=== PATIENT | female | born 1965 | race Caucasian/White ===

== ENCOUNTER 2024-06-10 16:32 | Inpatient (IN) | payer OTHER ==
[~2024-06-10] VITALS: Ht 162.6 cm; Wt 133.8 kg
[~2024-06-10 16:32] MED LIST: ADULT LOW DOSE81 MG PO; FUROSEMIDE40 MG PO; LISINOPRIL-HCT1 EAC1 PO; MEGA BIOTIN10000 MCG PO; METOPROLOL TAR100 MG PO; MULTI VITAMIN1 EACH PO; OMEGA 3 1,0001 EACH PO; OMEPRAZOLE20 MG PO; ONE DAILY FOR1 EACH PO; PREDNISONE20 MG PO; PROVENTIL HFA6.7 GM INH; RANITIDINE HCL150 MG PO; SIMVASTATIN20 MG PO; SUPER B COMPLE150 MG PO; VITAMIN D32000 UNI1 PO
[2024-06-10] MEDS ORDERED: HYDROXYZINE HCL25 MG PO (17:07)
[2024-06-10] MEDS ORDERED: TRIAMCINOLONE A15 G1 TOP (17:08)
[2024-06-10] MEDS ORDERED: GABAPENTIN100 MG PO (17:08)
[2024-06-10] MEDS ORDERED: TORSEMIDE20 MG PO (17:09)
[2024-06-10] MEDS ORDERED: SODIUM CHLORIDE 0.9% 1,000 ML IV ONE ×2 (17:30→19:45)
[2024-06-10 17:56] LABS: BASOPHILS 0.5 % (0-2); EOSINOPHILS 16.6 % (0-6); LYMPHOCYTES 16.5 % (24-44); MCH 32.5 (27-36); MCHC 35.8 g/dl (30-36); MCV 90.9 fl (81-99); NEUTROPHILS 60.4 % (39-80); PLATELET COUNT 380 K/uL (140-440); RBC 3.08 M/ul (4.3-5.7); RDW 13.8 (10.5-15.0)
[2024-06-10 18:13] LABS: ALBUMIN 4.3 g/dL (3.4-5.0); ALBUMIN/GLOBULIN RATIO 1.08 (1.1-2.4); ANION GAP 24.2 (7-21); BILIRUBIN, TOTAL 0.3 mg/dL (0.2-1.0); CALCIUM 9.7 mg/dL (8.5-10.1); CREATININE, SERUM 9.32 mg/dL (0.55-1.02); POTASSIUM 4.2 mmol/L (3.5-5.1); PROTEIN, TOTAL 8.3 g/dL (6.4-8.2)
[2024-06-10 18:17] LABS: BUN/CREATININE RATIO 26.5 (6.0-28.6)
[2024-06-10] MEDS ORDERED: DEXTROSE 50% 50 ML SYR IV PRN ×2 (19:00)
[2024-06-10] MEDS ORDERED: LACTATED RINGER'S 1,000 ML IV SCH (19:00)
[2024-06-10] MEDS ORDERED: GLUCAGON,HUMAN RECOMBINANT 1 MG/ML VIAL SUB-Q PRN (19:00)
[2024-06-10] MEDS ORDERED: IBLOOD GLUCOSE TEST STRIP 1 EA TEST XX PRN (19:00)
[2024-06-10] MEDS ORDERED: ACETAMINOPHEN 325 MG TAB PO PRN (19:00)
[2024-06-10] MEDS ORDERED: DEXTROSE 5% 1,000 ML IV PRN (19:00)
[2024-06-10] MEDS ORDERED: ondansetron HCL 4 MG/2 ML VIAL IV PRN (19:00)
[2024-06-10 20:24] LABS: BILIRUBIN, URINE NEGATIVE (negative); BLOOD/HGB, URINE TRACE-I (Negative); KETONE, URINE NEGATIVE (Negative); LEUK ESTERASE, URINE NEGATIVE (negative); NITRITE, URINE NEGATIVE (negative); PH, URINE 5.5 (5-7)
[2024-06-10 20:31] LABS: BACTERIA, URINE RARE /hpf (negative); CASTS, URINE NONE SEEN \\lpf; COLLECTION TYPE, URINE CLEAN CATCH; CRYSTALS, URINE NONE SEEN (0-1+); EPITHELIAL CELLS, URINE SQUAMOUS 2+ /lpf (0-1+); RED BLOOD CELLS, URINE 0-1 /hpf (0-5); REFLEX CULTURE, URINE No (No)
[2024-06-10 21:00] LABS: ANION GAP 24.9 (7-21); BUN/CREATININE RATIO 27.02 (6.0-28.6); CALCIUM 8.8 mg/dL (8.5-10.1); CREATININE, SERUM 8.4 mg/dL (0.55-1.02); POTASSIUM 3.9 mmol/L (3.5-5.1)
[2024-06-10] MEDS ORDERED: HEParin SOD (PORCINE) 5,000 UNIT/ML SDV SUB-Q SCH (21:00)
[2024-06-10] MEDS ORDERED: MELATONIN 3 MG TAB PO PRN (21:00)
[2024-06-10] MEDS ORDERED: IBLOOD GLUCOSE TEST STRIP 1 EA TEST VI SCH (21:00)
[2024-06-10] MEDS ORDERED: INSULIN LISPRO 100 UNIT/ML ML SUB-Q SCH (21:00)
--- NOTE | 2024-06-10 21:04 | NUR ---
REPORT RECEIVED FROM ER NURSE, WALKER. PATIENT TRANSFERRED TO MS BED IN ROOM 112. DAUGHTER, ABRAHAM, PRESENT. ORIENTED TO ROOM. ASSESSMENT COMPLETE. DENIES FURTHER NEEDS. CALL LIGHT IN REACH.
[2024-06-10 21:05] VITALS: BP 126/61
--- NOTE | 2024-06-10 21:13 | NUR ---
dr larios called rn station and asked if pt arrived to floor. per dr larios, md plans to see pt in the morning. md updated on most recent creatinine result compared to previous. per , orders for iv fluids and am labs in place. no new orders received at this time-primary rns made aware.
[2024-06-10 22:09] VITALS: BP 108/57
--- NOTE | 2024-06-10 22:23 | NUR ---
IN ROOM TO ANSWER CALL LIGHT, PATIENT AMBULATORY WITH MINIMAL SBA TO RESTROOM, RETURNED TO BED WITHOUT DIFFICULTY. IV FLUIDS INFUSING PER ORDER. PATIENT PROVIDED SNACK PER REQUEST. DENIES FURTHER NEEDS. CALL LIGHT IN REACH.
--- NOTE | 2024-06-10 23:33 | NUR ---
PATIENT RESTING COMFORTABLY ON LEFT SIDE WITH EYES CLOSED, RESPIRATIONS EVEN AND UNLABORED. NO NEEDS IDENTIFIED. CALL LIGHT IN REACH.
--- NOTE | 2024-06-10 23:54 | NUR ---
PT AWAKE, IV BEEPING. IV PUMP RESTARTED. IV SITE RH WNL. NO FURTHER NEEDS. CALL LIGHT WITHIN REACH.
[2024-06-11] VITALS (11 sets, daily range): BP systolic 98–150; BP diastolic 56–80
--- NOTE | 2024-06-11 00:16 | NUR ---
IN ROOM TO ANSWER CALL LIGHT. PATIENT AMBULATED TO RESTROOM WITH MINIMAL SBA. BACK TO BED WITHOUT DIFFICULTY. IV FLUIDS CONTINUING TO INFUSE PER MAR. FRESH WATER PROVIDED PER REQUEST. PATIENT DENIES FURTHER NEEDS. CALL LIGHT IN REACH.
--- NOTE | 2024-06-11 02:09 | NUR ---
ASSISTED PT TO BR, SBA. PT USES IV POLE FOR STABILITY. VOIDS WNL. VS OBTAINED. FRESH ICE WATER PROVIDED. TEMP DECREASED IN ROOM AND SOCKS REMOVED PER PT REQUEST, REPORTS NOT SLEEPING WELL.
--- NOTE | 2024-06-11 03:45 | NUR ---
IN ROOM TO ANSWER CALL LIGHT, PATIENT AMBULATORY TO RESTROOM USING IV POLE FOR STABILIZATION. AMBULATORY BACK TO BED WITHOUT DIFFICULTY. IV FLUIDS CONTINUING TO INFUSE PER ORDER. PATIENT DENIES FURTHER NEEDS, CALL LIGHT IN REACH.
[2024-06-11 05:31] LABS: BASOPHILS 0.6 % (0-2); EOSINOPHILS 16.5 % (0-6); HEMATOCRIT 27.4 % (35.0-50.0); HEMOGLOBIN 9.5 g/dL (12.0-18.0); LYMPHOCYTES 18.7 % (24-44); MCHC 34.8 g/dl (30-36); MONOCYTES 7.2 % (0-12); PLATELET COUNT 354 K/uL (140-440); RBC 2.98 M/ul (4.3-5.7)
--- NOTE | 2024-06-11 05:36 | NUR ---
PATIENT UP TO RESTROOM TO VOID, AMBULATORY WITH USE OF IV POLE FOR STABILIZATION. BACK TO BED WITHOUT DIFFICULTY. VS OBTAINED AND RECORDED. PATIENT DENIES FURTHER NEEDS. CALL LIGHT IN REACH.
[2024-06-11 05:48] LABS: ANION GAP 19.7 (7-21); BUN/CREATININE RATIO 30.6 (6.0-28.6); CALCIUM 9.2 mg/dL (8.5-10.1); CREATININE, SERUM 7.32 mg/dL (0.55-1.02); MAGNESIUM 2.9 mg/dL (1.8-2.4); PHOSPHORUS, INORGANIC 8.4 mg/dL (2.5-4.9); POTASSIUM 3.7 mmol/L (3.5-5.1)
--- NOTE | 2024-06-11 06:23 | NUR ---
PATIENT AWAKE AND ALERT, WATCHING TV. FAMILY MEMBER PRESENT IN ROOM WITH PATIENT. DENIES ANY NEEDS, CALL LIGHT IN REACH.
--- NOTE | 2024-06-11 07:20 | NUR ---
REPORT RECEIVED FROM PROCESS OPERATOR RN. PATIENT ASSISTED TO BATHROOM WITH 1 PA STAND BY. VOID QUANITY SUFFICIENT. PATIENT BACK IN BED. REQUESTING FRESH ICE WATER. ICE WATER GIVEN. DENIES ANY NEEDS AT THIS TIME. CALL LIGHT WITHIN REACH.
--- NOTE | 2024-06-11 08:25 | NUR ---
PATIENT RESTING IN BED. EATING BREAKFATS. NEW BAG OF IVF HUNG, IV SITE PATENT. NO FURTHER NEEDS. CALL LIGHT WITHIN REACH.
--- NOTE | 2024-06-11 09:41 | NUR ---
PATIENT ASSISTED TO BATHROOM. VOID FOR QUANITY SUFFICIENT. PATIENT ASSISTED TO RECLINER WITH 1 PA ASSIST. LUNGS CTA, BOWEL TONES ACTIVE X4. HEART SOUNDS REGULAR. PATIENT DENIES ANY PAIN OR DISCOMFORT AT THIS TIME. IV SITE PATENT WITH IVD INFUSING WNL. REQUESTED APPLE JUICE, APPLE JUICE GIVEN. DENIES ANY FURTHER NEEDS CALL LIGHT WITHIN REACH.
[2024-06-11] MEDS ORDERED: TRIMETHOPRIM/SULFAMETHOXAZOLE 1 EA TAB PO SCH (10:16)
[2024-06-11] MEDS ORDERED: CEFTRIAXONE SODIUM 2 GM in SODIUM CHLORIDE 0.9% 100 ML IV SCH (10:20)
[2024-06-11] MEDS ORDERED: METOPROLOL TARTRATE 50 MG TAB PO SCH (10:22)
[2024-06-11] MEDS ORDERED: PANTOPRAZOLE SODIUM 40 MG TABEC PO SCH (10:23)
--- NOTE | 2024-06-11 10:37 | NUR ---
VISITED DURING SPIRITUAL CARE ROUNDS. PT UP IN CHAIR, DEMONSTRATED OVERALL GOOD SPIRITS, DENIED IMMEDIATE NEEDS. VENEER SHEET REPAIRER PROVIDED SUPPORTIVE PRESENCE, HOSPITALITY, PRAYER, FACILITATED INTERACTION WITH THERAPY ANIMAL. PT EXPRESSED GRATITUDE.
[2024-06-11] MEDS ORDERED: CEFTRIAXONE SODIUM 2 GM VIAL ONE (10:39)
--- NOTE | 2024-06-11 10:40 | NUR ---
UR CLINICAL REVIEW: [facility] [place], MEETS INPT FOR ACUTE RENAL FAILURE CREATININE 8.40 AFTER OBSERVATION PERIOD, GFR 5, BUN 227, NEED FOR GENTAL IV HYDRATION DUE TO HISTORY OF CHF, CONTINUED MONITORING OF LABS [facility] INPT 06/10/24 @ 1859 ORDER MATCHES REG AUTH PENDING, CLINICALS SENT FOR REVIEW, VIA RIGHTFAX. PLAN TO DC TO HOME WHEN MEDICALLY STABLE. 06/13/2024
--- NOTE | 2024-06-11 10:45 | NUR ---
Spoke with Katarzyna, she states she lives in a 1 story home with 1 step. She lives with her 2 adult kelly, and sons girlfriend. They share costs and household tasks. Pt drives. She is not currently working, but is looking for a job. She uses a cane for long distance. Pt denies needs to go home. She denies finacial or safety concerns. Home when cleared medically.
--- NOTE | 2024-06-11 10:50 | NUR ---
NOTED BOWEL MOVEMENT OF DIARRHEA. SCHEDULED MEDICATIONS ADMINSTERED. FRESH ICE WATER GIVEN. DENIES ANY FURTHER NEEDS CALL LIGHT WITHIN REACH.
[2024-06-11] MEDS ORDERED: FENOFIBRATE134 MG PO (11:26)
[2024-06-11] MEDS ORDERED: METFORMIN HCL500 M1 PO (11:27)
[2024-06-11] MEDS ORDERED: PHARMACY RENAL DOSE ADJUSTMENT 1 DOSE MISC PO SCH (12:00)
--- NOTE | 2024-06-11 12:18 | NUR ---
CALL LIGHT ANSWERED. PATIENT ASSISTED TO BATHROOM WITH 1 PA ASSIST. BM NOTED SEMI SOLID. PATIENT SE TUP WITH LUNCH. SS INSULIN ADMINSTERED. DENIES ANY FURTHER NEEDS CALL LIGHT WITHIN REACH.
[2024-06-11] MEDS ORDERED: BUPROPION XL150 MG PO (13:06)
--- NOTE | 2024-06-11 13:07 | NUR ---
MED REC COMPLETE
--- NOTE | 2024-06-11 13:36 | NUR ---
PATIENT RESTING IN RECLINER. DENIES ANY NEEDS AT THIS TIME. IV SITE PATENT, IVF INFUSING WITH NO ISSUES OR CONCERNS. CALL LIGHT WITHIN REACH.
--- NOTE | 2024-06-11 14:30 | NUR ---
STOOL SAMPLE OBTAINED BY UTILITY BILL COMPLAINTS INVESTIGATOR STAFF.
--- NOTE | 2024-06-11 15:22 | NUR ---
PATIENT UP TO BATHROOM TO HAVE BM. BACK TO RECLINER. IV SITE REMAINS PATENT. PATIENT DENIES ANY PAIN. DENIES ANY NAUSEA. CALL LIGHT WITHIN REACH.
--- NOTE | 2024-06-11 17:13 | NUR ---
PATIENT RESTING IN RECLINER. EATING DINNER. DENIES ANY NEEDS AT THIS TIME. SS INSULIN ADMINSTERED. CALL LIGHT WITHIN REACH.
[2024-06-11] MEDS ORDERED: LACTATED RINGER'S 1,000 ML IV SCH (17:15)
--- NOTE | 2024-06-11 18:24 | NUR ---
PATIENT RESTING IN RECLINER. DENIES ANY NEEDS AT THIS TIME. CALL LIGHT WITHIN REACH.
--- NOTE | 2024-06-11 19:36 | NUR ---
RECEIVED REPORT FROM ISRAEL TRUJILLO. PT RESTING IN BED. NO NEEDS OR COMPLAINTS AT THIS TIME.
--- NOTE | 2024-06-11 19:43 | NUR ---
AGRICULTURE ENGINEER GAVE PT A YOGURT (13G CARBS)
--- NOTE | 2024-06-11 20:21 | NUR ---
CREDIT ADMINISTRATOR OBTAINED VITALS. PT SBA TO BATHROOM. I&O DOCUMENTED. PT STATES NO FURTHER NEEDS AT THIS TIME. CALL LIGHT WITHIN REACH.
[2024-06-11] MEDS ORDERED: diphenhydrAMINE HCL 25 MG CAP PO PRN (20:45)
--- NOTE | 2024-06-11 20:45 | NUR ---
PATIENT REPORTS ITCHING. RED AREA NOTED ON LEFT LOWER ROSEN AREA FROM PATIENT SCRATCHING. LOTION APPLIED. PATIENT REPORTS ITCHING ACROSS THE MAJORITY OF HER BODY. NO RASIED RASH NOTED. PATIENT REPORTS THIS IS A CHONIC ISSUE FOR HER. REQUEST PO BENADRYL. DISCUSSED WITH ; PRN MEDS ORDERED. SEE EMAR. PRIMARY RN UPDATED.
[2024-06-11] MEDS ORDERED: ATORVASTATIN 10 MG TAB PO SCH (21:00)
--- NOTE | 2024-06-11 22:00 | NUR ---
PT APPEARS TO BE SLEEPING ON LEFT SIDE, APPEARS COMFORTABLE.
--- NOTE | 2024-06-11 23:34 | NUR ---
patient assisted back to bed from bathroom. patient reports difficulty sleeping and some discomfort in her back. primary rn notified.
--- NOTE | 2024-06-11 23:37 | NUR ---
PT REPORTS DIFFICULTY SLEEPING. DECLINES OFFER OF PRN MELATONIN. WARM BLANKET OFFER ACCEPTED. FRESH ICE WATER GIVEN. CALL LIGHT WITHIN REACH.
[2024-06-12] VITALS (8 sets, daily range): BP systolic 117–136; BP diastolic 45–62
--- NOTE | 2024-06-12 00:57 | NUR ---
PT STILL AWAKE, SITTING EOB. REPORTS STILL NOT BEING ABLE TO SLEEP. DECLINES WALK IN HALLS AT THIS TIME. IVF INFUSING. CALL LIGHT WITHIN REACH.
--- NOTE | 2024-06-12 03:35 | NUR ---
CALL LIGHT ANSWERED. PT NEEDED TO USE BATHROOM. OVERHEAD CLEANER MAINTAINER SBA TO BATHROOM. PT VOIDED AND STATED THAT SHE WANTED TO SIT IN CHAIR. PT ASSISTED TO CHAIR AND STATES NO FURTHER NEEDS AT THIS TIME. CALL LIGHT WITHIN REACH.
--- NOTE | 2024-06-12 04:29 | NUR ---
CALL LIGHT ANSWERED. PT NEEDED TO USE BATHROOM. SECURITIES TRADER SBA TO BATHROOM. PT INSTRUCTED TO USE BATHROOM CALL LIGHT WHEN DONE. BATHROOM CALL LIGHT ANSWERED. PT ASSISTED BACK TO CHAIR. OUTPUT MEASURED AND PT STATES NO FURTHER NEEDS AT THIS TIME. CALL LIGHT WITHIN REACH.
--- NOTE | 2024-06-12 04:57 | NUR ---
PT SLEEPING, APPEARS COMFORTABLE.
--- NOTE | 2024-06-12 05:10 | NUR ---
PT REPORTS NAUSEA. PRN ZOFRAN ADMINISTERED AND DIET 7-UP PROVIDED. BT HYPO X 4. ABD OBESE, PT REPORTS FEELING BLOATED. UP IN RECLINER. ENCOURAGED AMBULATION IN HALLS WHEN NAUSEA PASSES.
--- NOTE | 2024-06-12 05:24 | NUR ---
BASKET PERSON OBTAINED VITALS AND I&O. PT STATES NO NEEDS AT THIS TIME. CALL LIGHT WITHIN REACH.
--- NOTE | 2024-06-12 05:39 | NUR ---
CALL LIGHT ANSWERED. PT NEEDED TO USE BATHROOM. POUNCER SBA TO BATHROOM. PT VOIDED AND ASSISTED BACK TO CHAIR. PT STATES NO FURTHER NEEDS AT THIS TIME. CALL LIGHT WITHIN REACH.
--- NOTE | 2024-06-12 06:07 | NUR ---
PT WANTED TO GO FOR A WALK. PT WALKED 1 LAP AROUND UNIT WITH THIS COLLEGE SPORTS ASSISTANT SBA. PT NOW BACK IN ROOM IN CHAIR. PT STATES NO FURTHER NEEDS AT THIS TIME. CALL LIGHT WITHIN REACH.
--- NOTE | 2024-06-12 07:15 | NUR ---
REPORT REC'D FROM GINA WOOD. PT UP TO BRP AT THIS TIME.
[2024-06-12 08:08] LABS: BASOPHILS 0.8 % (0-2); EOSINOPHILS 10.2 % (0-6); HEMATOCRIT 28.5 % (35.0-50.0); LYMPHOCYTES 18.3 % (24-44); MCH 32.1 (27-36); MCV 91.5 fl (81-99); MONOCYTES 6.8 % (0-12); NEUTROPHILS 63.9 % (39-80); PLATELET COUNT 393 K/uL (140-440); RBC 3.11 M/ul (4.3-5.7); RDW 14.1 (10.5-15.0)
[2024-06-12 08:22] LABS: ALBUMIN 4.2 g/dL (3.4-5.0); ALBUMIN/GLOBULIN RATIO 1.02 (1.1-2.4); ANION GAP 17.7 (7-21); BILIRUBIN, TOTAL 0.3 mg/dL (0.2-1.0); BUN/CREATININE RATIO 44.91 (6.0-28.6); CALCIUM 9.7 mg/dL (8.5-10.1); CREATININE, SERUM 4.23 mg/dL (0.55-1.02); MAGNESIUM 2.4 mg/dL (1.8-2.4); POTASSIUM 3.7 mmol/L (3.5-5.1); PROTEIN, TOTAL 8.3 g/dL (6.4-8.2)
[2024-06-12] MEDS ORDERED: CEFTRIAXONE SODIUM 2 GM VIAL ONE (08:31)
[2024-06-12] MEDS ORDERED: cefuroxime axetiL 500 MG TAB PO SCH (10:34)
--- NOTE | 2024-06-12 12:15 | NUR ---
PT C/O NAUSEA/VOMITING APPROXIMATELY 200ML EMESIS. MEDICATED WITH 4MG ZOFRAN PO.
[2024-06-12] MEDS ORDERED: ondansetron HCL 4 MG TAB PO PRN (12:30)
--- NOTE | 2024-06-12 13:13 | NUR ---
PT REMAINS UP IN CHAIR, FEELS SLIGHTLY BETTER, BUT DID NOT WANT TO EAT LUNCH TRAY. PT CONTINUES TO HOPE SHE WILL BE DISCHARGED HOME LATER TODAY. PT HAS HAD BMX1 THIS SHIFT. IV INFILTRATION SITE DECREASED IN SWELLING, NO PAIN AT SITE CMS REMAINS INTACT. RECLINER LOCKED, CALL WATTS IN REACH.
--- NOTE | 2024-06-12 13:54 | NUR ---
PATIENT IS IN HER CHAIR AT THIS TIME, SHE WAS IN THE RESTROOM WHEN I CAME IN. STATED SHE WAS FEELING NAUSIOUS. ANTHROPOLOGIST CHARTED VITALS AND I&O'S, AND NOTIFIED RN THAT HER BP WAS A LITTLE LOW. CALL LIGHT WITH IN REACH NOTHING ELSE NEEDED AT THIS TIME.
[2024-06-12] MEDS ORDERED: PROCHLORPERAZINE MALEATE 5 MG TAB PO PRN (15:00)
[2024-06-12 16:23] LABS: ANION GAP 15.6 (7-21); BUN/CREATININE RATIO 42.55 (6.0-28.6); CALCIUM 9.9 mg/dL (8.5-10.1); CREATININE, SERUM 3.76 mg/dL (0.55-1.02); POTASSIUM 3.6 mmol/L (3.5-5.1)
[2024-06-12] MEDS ORDERED: NITROFURANTOIN MONOHYD MACROCR 100 MG CAP PO SCH (17:00)
[2024-06-12] MEDS ORDERED: METOCLOPRAMIDE HCL 10 MG TAB PO PRN (18:00)
--- NOTE | 2024-06-12 18:19 | NUR ---
PATIENT IS IN HER CHAIR AT THIS TIME, INSTRUCTOR HAIRSPRING CHARTED VITALS AND I&O'S. CALL LIGHT WITHIN REACH, NOTHING ELSE NEEDED AT THIS TIME.
[2024-06-12] MEDS ORDERED: NITROFURANTOIN100 M1 PO (18:43)
[2024-06-12] MEDS ORDERED: ONDANSETRON HCL4 MG PO (18:44)
--- NOTE | 2024-06-12 19:39 | NUR ---
PT D/C INFORMATION AND EDUCATION DONE. PT DC'D VIA W/C W/ FAMILY AND ALL BELONGINGS.
== END 2024-06-12 19:35 | disposition home or self-care (01) | DRG 683 ==
LOC: ED 16:32 → MS 20:42
PROVIDERS: Emergency Medicine; Family Medicine; ADMIT Student in an Organized Health Care Education/Training Program; ATTEND Student in an Organized Health Care Education/Training Program
DX: N17.9 Acute kidney failure, unspecified (principal); I50.22 Chronic systolic (congestive) heart failure; N39.0 Urinary tract infection, site not specified; K21.9 Gastro-esophageal reflux disease without esophagitis; E78.00 Pure hypercholesterolemia, unspecified; Z66 Do not resuscitate; F17.210 Nicotine dependence, cigarettes, uncomplicated; E86.0 Dehydration; F41.1 Generalized anxiety disorder; E78.5 Hyperlipidemia, unspecified; E11.40 Type 2 diabetes mellitus with diabetic neuropathy, unspecified; F32.9 Major depressive disorder, single episode, unspecified; I11.0 Hypertensive heart disease with heart failure; E83.41 Hypermagnesemia; E83.39 Other disorders of phosphorus metabolism; N18.9 Chronic kidney disease, unspecified; E11.22 Type 2 diabetes mellitus with diabetic chronic kidney disease; A08.4 Viral intestinal infection, unspecified; Z87.59 Personal history of other complications of pregnancy, childbirth and the puerperium; Z90.49 Acquired absence of other specified parts of digestive tract; Z86.79 Personal history of other diseases of the circulatory system; Z88.5 Allergy status to narcotic agent; Z79.899 Other long term (current) drug therapy; Z79.811 Long term (current) use of aromatase inhibitors
CPT/HCPCS: 36415; 74176; 80048; 80053; 81001; 83735; 84100; 85025; A9270; J1644; J1815; J2405; J7030; J7121

== ENCOUNTER 2024-06-14 06:00 | Emergency (ER) | payer OTHER ==
[~2024-06-14] VITALS: Ht 162.6 cm; Wt 129.7 kg
[~2024-06-14 06:00] MED LIST changes: +BUPROPION XL150 MG PO; +FENOFIBRATE134 MG PO; +GABAPENTIN100 MG PO; +HYDROXYZINE HCL25 MG PO; +METFORMIN HCL500 M1 PO; +NITROFURANTOIN100 M1 PO; +ONDANSETRON HCL4 MG PO; +TORSEMIDE20 MG PO; +TRIAMCINOLONE A15 G1 TOP
--- OUTSIDE RECORDS SUMMARY | 2024-06-14 06:04 | XMS ---
PreManage Notification: RASHAWN LORD Security Manufacturing Cost Estimator Events No recent Security Events currently on file CRITERIA MET - [facility] - 2 Visits in 30 Days CARE PROVIDERS -, [facility] Dentist: Seasonal Driver Current [place] PHONE: [phone] NICK KHAN [facility] Current PHONE: Unknown Brandy has no Care Guidelines for this patient. Lanette VISIT COUNT (12 MO.) [address] [place] [address] TOTAL 2 NOTE: Visits indicate total known visits. ED/UCC VISIT TRACKING (12 MO.) 06/14/2024 06:00 [facility] TYPE: Emergency COMPLAINT: - VOMITING 06/10/2024 16:32 [facility] TYPE: Emergency COMPLAINT: - ABDNORMAL LAB RESULTS INPATIENT VISIT TRACKING (12 MO.) 06/10/2024 20:[address] [facility] TYPE: Medical Surgical COMPLAINT: - GASTROENTERITIS/ACUTE RENAL FAILURE DIAGNOSES: - Acquired absence of other specified parts of digestive tract - Acquired absence of other specified parts of digestive tract - Acute kidney failure, unspecified - Acute kidney failure, unspecified - Allergy status to narcotic agent - Allergy status to narcotic agent - Chronic kidney disease, unspecified - Chronic kidney disease, unspecified - Chronic systolic (congestive) heart failure - Chronic systolic (congestive) heart failure - Dehydration - Dehydration - Diarrhea, unspecified - Do not resuscitate - Do not resuscitate - Gastro-esophageal reflux disease without esophagitis - Gastro-esophageal reflux disease without esophagitis - Generalized anxiety disorder - Generalized anxiety disorder - Hyperlipidemia, unspecified - Hyperlipidemia, unspecified - Hypermagnesemia - Hypermagnesemia - Hypertensive heart disease with heart failure - Hypertensive heart disease with heart failure - extermination supervisor (current) use of aromatase inhibitors - custodial (current) use of aromatase inhibitors - Major depressive disorder, single episode, unspecified - Major depressive disorder, single episode, unspecified - Nicotine dependence, cigarettes, uncomplicated - Nicotine dependence, cigarettes, uncomplicated - Other disorders of phosphorus metabolism - Other disorders of phosphorus metabolism - Other ocean transportation intermediary (current) drug therapy - Other ocean transportation intermediary (current) drug therapy - Personal history of other complications of , childbirth and the puerperium - Personal history of other complications of , childbirth and the puerperium - Personal history of other diseases of the circulatory system - Personal history of other diseases of the circulatory system - Pure hypercholesterolemia, unspecified - Pure hypercholesterolemia, unspecified - Type 2 diabetes mellitus with diabetic chronic kidney disease - Type 2 diabetes mellitus with diabetic chronic kidney disease - Type 2 diabetes mellitus with diabetic neuropathy, unspecified - Type 2 diabetes mellitus with diabetic neuropathy, unspecified - Urinary tract infection, site not specified - Urinary tract infection, site not specified - Viral intestinal infection, unspecified - Viral intestinal infection, unspecified [email or web address]
[2024-06-14] MEDS ORDERED: ondansetron HCL 4 MG/2 ML VIAL IV ONE (06:30)
[2024-06-14] MEDS ORDERED: LACTATED RINGER'S 1,000 ML IV ONE (06:30)
[2024-06-14 06:31] LABS: BASOPHILS 0.7 % (0-2); EOSINOPHILS 1.7 % (0-6); HEMATOCRIT 30.1 % (35.0-50.0); HEMOGLOBIN 10.3 g/dL (12.0-18.0); LYMPHOCYTES 13.6 % (24-44); MCH 31.5 (27-36); MCHC 34.2 g/dl (30-36); MCV 92.1 fl (81-99); MONOCYTES 6.4 % (0-12); NEUTROPHILS 77.6 % (39-80); PLATELET COUNT 439 K/uL (140-440); RBC 3.26 M/ul (4.3-5.7); RDW 14.1 (10.5-15.0)
[2024-06-14 06:46] LABS: ALBUMIN 4.4 g/dL (3.4-5.0); ALBUMIN/GLOBULIN RATIO 0.92 (1.1-2.4); ANION GAP 16.4 (7-21); BILIRUBIN, TOTAL 0.4 mg/dL (0.2-1.0); BUN/CREATININE RATIO 38.95 (6.0-28.6); CALCIUM 10.3 mg/dL (8.5-10.1); CREATININE, SERUM 2.49 mg/dL (0.55-1.02); POTASSIUM 3.4 mmol/L (3.5-5.1); PROTEIN, TOTAL 9.2 g/dL (6.4-8.2)
[2024-06-14] MEDS ORDERED: HYDROCODON-ACE1 EA10 PO (06:59)
[2024-06-14] MEDS ORDERED: fentaNYL citrate 100 MCG/2 ML VIAL IV ONE (07:00)
[2024-06-14] MEDS ORDERED: PROMETHEGAN25 MG PR (07:00)
[2024-06-14] MEDS ORDERED: diphenhydrAMINE HCL 50 MG/ML VIAL IV ONE (07:00)
[2024-06-14] MEDS ORDERED: DIPHENOXYLATE/ATROPINE 1 EA TAB PO ONE (07:00)
[2024-06-14] MEDS ORDERED: ONDANSETRON ODT8 MG PO (07:00)
[2024-06-14] MEDS ORDERED: LOMOTIL TABLET1 EACH PO (07:04)
[2024-06-14] MEDS ORDERED: CHOLESTYRAMINE P4 GM PO (07:04)
[2024-06-14] MEDS ORDERED: droPERidol 5 MG/2 ML VIAL IV ONE (08:30)
[2024-06-14] MEDS ORDERED: HYDROCODONE/ACETA 7.5/325 TAB PO ONE (09:30)
[2024-06-14] MEDS ORDERED: HYDROCODON-ACE1 EA11 PO (09:33)
[2024-06-14 09:52] VITALS: BP 156/85
[2024-06-14 09:57] LABS: BILIRUBIN, URINE NEGATIVE (negative); BLOOD/HGB, URINE TRACE-I (Negative); KETONE, URINE NEGATIVE (Negative); LEUK ESTERASE, URINE NEGATIVE (negative); NITRITE, URINE NEGATIVE (negative)
[2024-06-14 10:05] LABS: EPITHELIAL CELLS, URINE SQUAMOUS 1+ /lpf (0-1+)
[2024-06-14 10:06] LABS: BACTERIA, URINE NONE SEEN /hpf (negative); CASTS, URINE NONE SEEN \\lpf; COLLECTION TYPE, URINE CLEAN CATCH; CRYSTALS, URINE NONE SEEN (0-1+); RED BLOOD CELLS, URINE 0-1 /hpf (0-5); REFLEX CULTURE, URINE No (No); WHITE BLOOD CELLS, URINE 0-1 /HPF (0-5)
== END 2024-06-14 09:52 | disposition home or self-care (01) ==
LOC: ED 06:00
PROVIDERS: Family Medicine
DX: K52.9 Noninfective gastroenteritis and colitis, unspecified (principal); N28.9 Disorder of kidney and ureter, unspecified; I10 Essential (primary) hypertension; E78.00 Pure hypercholesterolemia, unspecified; K21.9 Gastro-esophageal reflux disease without esophagitis; F17.200 Nicotine dependence, unspecified, uncomplicated; Z88.5 Allergy status to narcotic agent; Z79.899 Other long term (current) drug therapy
CPT/HCPCS: 36415; 80053; 81001; 83735; 85025; 96374; 96375; 99284-25; A9270; J1200; J1790; J2405; J3010; J7121

== ENCOUNTER 2025-01-01 11:45 | Emergency (ER) | payer BC, OTHER ==
[~2025-01-01] VITALS: Ht 162.6 cm; Wt 125.6 kg
[~2025-01-01 11:45] MED LIST changes: +CHOLESTYRAMINE P4 GM PO; +HYDROCODON-ACE1 EA10 PO; +HYDROCODON-ACE1 EA11 PO; +LOMOTIL TABLET1 EACH PO; +ONDANSETRON ODT8 MG PO; +PROMETHEGAN25 MG PR
[2025-01-01] MEDS ORDERED: TRAMADOL HCL50 MG PO (13:41)
[2025-01-01] MEDS ORDERED: OXYCODONE HCL 5 MG TAB PO ONE (14:30)
[2025-01-01] MEDS ORDERED: CEPHALEXIN500 M1 PO (16:05)
[2025-01-01] MEDS ORDERED: HYDROCODON-ACE1 EAC8 PO (16:05)
[2025-01-01] MEDS ORDERED: CEPHALEXIN MONOHYDRATE 500 MG HOME.PACK PO ONE (16:15)
[2025-01-01 17:00] VITALS: BP 159/90
== END 2025-01-01 17:00 | disposition home or self-care (01) ==
LOC: ED 11:45
DX: L03.114 Cellulitis of left upper limb (principal); E11.22 Type 2 diabetes mellitus with diabetic chronic kidney disease; I12.9 Hypertensive chronic kidney disease with stage 1 through stage 4 chronic kidney disease, or unspecified chronic kidney disease; N18.9 Chronic kidney disease, unspecified; E78.00 Pure hypercholesterolemia, unspecified; K21.9 Gastro-esophageal reflux disease without esophagitis; F17.200 Nicotine dependence, unspecified, uncomplicated; Z88.5 Allergy status to narcotic agent; Z79.899 Other long term (current) drug therapy
CPT/HCPCS: 73080; 73130; 93971; 96365; 99284-25; A9270; J0696

== ENCOUNTER 2025-01-14 16:46 | Emergency (ER) | payer OTHER ==
[~2025-01-14] VITALS: Ht 162.6 cm; Wt 125.6 kg
--- OUTSIDE RECORDS SUMMARY | ~2025-01-14 | XMS | Continuity of Care Document ---
Demographics + + + | Address | [address] | | | [place] [address] | + + + | Preferred Language | Unknown | + + + | Marital Status | Never | + + + | Synagogue Affiliation | Unknown | + + + | Race | White | + + + | Ethnic Group | Not or | + + + Author + + + | Author | [facility] | + + + | Organization | [facility] | + + + | Address | [address] | | | [place] [address] | + + + | Phone | | + + + Care Team Providers + + + + | Care Top Cutter Name | Role | Phone | + + + + Unavailable | Unavailable | + + + + Allergies No information. Encounters No information. Functional Status No information. Immunizations No information. Medications + + + + | date | description | facility | + + + + | (no date) | TRIAMCINOLONE 0.1% | [facility] | | | | [facility] | + + + + | (no date) | | [facility] [place] [facility] | | | LISINOPRIL/HYDROCHLOROTHIAZ | [facility] | | | TIEN | | + + + + | (no date) | OMEPRAZOLE | [facility] | | | | [facility] | + + + + | (no date) | TORSEMIDE | [facility] | | | | [facility] | + + + + | (no date) | BIOTIN | [facility] | | | | [facility] | + + + + | (no date) | GABAPENTIN | [facility] | | | | [facility] | + + + + | (no date) | CHOLECALCIFEROL (VITAMIN | [facility] | | | D3) | [facility] | + + + + | (no date) | METOPROLOL TARTRATE | [facility] | | | | [facility] | + + + + | (no date) | BUPROPION HCL | [facility] | | | | [facility] | + + + + | (no date) | hydrOXYzine HCL | [facility] | | | | [facility] | + + + + Problems No information. Procedures No information. Results/Labs No information. Social History +--------+ + + | date | description | facility | +--------+ + + Vital Signs No information."
[~2025-01-14 16:46] MED LIST changes: +CEPHALEXIN500 M1 PO; +HYDROCODON-ACE1 EAC8 PO; +TRAMADOL HCL50 MG PO
--- OUTSIDE RECORDS SUMMARY | 2025-01-14 16:53 | XMS ---
PreManage Notification: RASHAWN LORD Security Business Process Associate Events No recent Security Events currently on file CRITERIA MET - [facility] - 2 Visits in 30 Days CARE PROVIDERS -, [facility] Dentist: Nutritionist Public Health Yessica Kennedy PHONE: [phone] DR. MELIDA Leach Clinic/Center: [facility] \F\ <UNAVAIL> PHONE: [phone] Brandy has no Care Guidelines for this patient. EBeckie VISIT COUNT (12 MO.) [address] [place] [address] TOTAL 4 NOTE: Visits indicate total known visits. ED/UCC VISIT TRACKING (12 MO.) 01/14/2025 16:47 [facility] TYPE: Emergency COMPLAINT: - POSSIBLE ELEVATED CREATIN 01/01/2025 11:46 [facility] TYPE: Emergency COMPLAINT: - LT ARM SWELLING DIAGNOSES: - Allergy status to narcotic agent - Cellulitis of left upper limb - Chronic kidney disease, unspecified - Gastro-esophageal reflux disease without esophagitis - Hypertensive chronic kidney disease with stage 1 through stage 4 chronic kidney disease, or unspecified chronic kidney disease - Nicotine dependence, unspecified, uncomplicated - Other terminal operations manager (current) drug therapy - Pain in left forearm - Pure hypercholesterolemia, unspecified - Type 2 diabetes mellitus with diabetic chronic kidney disease 06/14/2024 06:00 [facility] TYPE: Emergency COMPLAINT: - VOMITING DIAGNOSES: - Allergy status to narcotic agent - Disorder of kidney and ureter, unspecified - Essential (primary) hypertension - Gastro-esophageal reflux disease without esophagitis - Nicotine dependence, unspecified, uncomplicated - Noninfective gastroenteritis and colitis, unspecified - Other alf (current) drug therapy - Pure hypercholesterolemia, unspecified - Vomiting, unspecified 06/10/2024 16:32 [facility] TYPE: Emergency COMPLAINT: - ABDNORMAL LAB RESULTS INPATIENT VISIT TRACKING (12 MO.) 06/10/2024 20:42 [facility] TYPE: Medical Surgical COMPLAINT: - GASTROENTERITIS/ACUTE [...] Hypertensive heart disease with heart failure - intermodal dispatcher (current) use of aromatase inhibitors - intermediate (current) use of aromatase inhibitors - Major depressive disorder, single episode, unspecified - Major depressive disorder, single episode, unspecified - Nicotine dependence, cigarettes, uncomplicated - Nicotine dependence, cigarettes, uncomplicated - Other disorders of phosphorus metabolism - Other disorders of phosphorus metabolism - Other terminal operations manager (current) drug therapy - Other alf (current) drug therapy - Personal history of [...] infection, unspecified - Viral intestinal infection, unspecified [email or web address]
[2025-01-14] MEDS ORDERED: ATORVASTATIN CA10 MG PO (17:40)
[2025-01-14 18:03] LABS: BASOPHILS 1.0 % (0.1-1.2); EOSINOPHILS 6.2 % (0.7-5.8); LYMPHOCYTES 12.0 % (19.3-51.7); MCH 28.6 PG (25.6-32.2); MCHC 33.4 g/dL (32.2-35.5); MCV 85.4 fL (79.4-94.8); MONOCYTES 6.8 % (4.7-12.5); NEUTROPHILS 72.0 % (34.0-71.1); RBC 3.78 M/uL (3.93-5.22)
[2025-01-14] MEDS ORDERED: SODIUM CHLORIDE 0.9% 1,000 ML IV PRN ×2 (18:15→21:00)
[2025-01-14 18:23] LABS: ALT (SGPT) 40.0 U/L (14-59); AST (SGOT) 17.0 U/L (15-37); GLOMERULAR FILTRATION RATE,EST 8.0 mL/min (>60); PROTEIN, TOTAL 8.2 g/dL (6.4-8.2); UREA NITROGEN 218.0 mg/dL (7-18)
[2025-01-14 19:05] LABS: INFLUENZA B NAA NEGATIVE (NEGATIVE); RESPIRATORY SYNCYTIAL VIR NAA NEGATIVE (NEGATIVE)
[2025-01-14] MEDS ORDERED: SODIUM CHLORIDE 0.9% 1,000 ML IV ONE ×2 (20:00→22:45)
[2025-01-14 20:04] LABS: BLOOD/HGB, URINE TRACE-I (Negative); KETONE, URINE NEGATIVE (Negative); LEUK ESTERASE, URINE NEGATIVE (negative); NITRITE, URINE NEGATIVE (negative)
[2025-01-14 20:13] LABS: BACTERIA, URINE 1+ /hpf (negative); CRYSTALS, URINE NONE SEEN (0-1+); EPITHELIAL CELLS, URINE SQUAMOUS 2+ /lpf (0-1+)
[2025-01-14 20:14] LABS: CASTS, URINE NONE SEEN \\lpf
[2025-01-14 20:15] LABS: REFLEX CULTURE, URINE No (No)
[2025-01-14 22:23] LABS: GLOMERULAR FILTRATION RATE,EST 10.0 mL/min (>60); UREA NITROGEN 187.0 mg/dL (7-18)
[2025-01-15 00:14] VITALS: BP 101/62
== END 2025-01-15 00:16 | disposition home or self-care (01) ==
LOC: ED 16:46
PROVIDERS: Emergency Medicine; Family Medicine
DX: N17.9 Acute kidney failure, unspecified (principal); E86.0 Dehydration; I13.0 Hypertensive heart and chronic kidney disease with heart failure and stage 1 through stage 4 chronic kidney disease, or unspecified chronic kidney disease; E11.22 Type 2 diabetes mellitus with diabetic chronic kidney disease; N18.9 Chronic kidney disease, unspecified; I50.9 Heart failure, unspecified; E78.00 Pure hypercholesterolemia, unspecified; K21.9 Gastro-esophageal reflux disease without esophagitis; F17.200 Nicotine dependence, unspecified, uncomplicated; Z88.5 Allergy status to narcotic agent; Z79.899 Other long term (current) drug therapy
CPT/HCPCS: 36415; 80048; 80053; 81001; 84484; 85025; 87502; 96360; 96361; 99284-25; J7030; U0002